=== PATIENT | male | born 1975 | race African-American/Black ===

== ENCOUNTER 2018-06-28 10:51 | Emergency (ER) | payer OTHER, SELFPAY ==
--- NOTE | 2018-06-28 11:17 | RAD REPORT ---
EXAM DESCRIPTION: CT - Ct Stroke Brain Wo Cont - 06/28/2018 11:09 am CLINICAL HISTORY: Left arm left leg numbness CLINICAL HISTORY: None. TECHNIQUE: Axial 5 millimeter thick images of the head were obtained without IV contrast. All CT scans are performed using dose optimization technique as appropriate and may include automated exposure control or mA/KV adjustment according to patient size. FINDINGS: No intracranial hemorrhage, mass, or cerebral edema. No acute infarction identifiable. No extra-axial fluid collections. Calixto matter-white matter differentiation is preserved. Ventricles are normal size. Physiologic calcifications are present. Visualized portions of the mastoid air cells, paranasal sinuses, and orbits are unremarkable. Significant asymmetry is created by head tilt. Findings telephoned to [facility] in the emergency department 11:13 a.m.. IMPRESSION: No CT evidence of acute intracranial process. MR imaging could be performed if the patient has continued symptoms concerning for nonhemorrhagic CVA .
[2018-06-28 11:50] LABS: Potassium 4.4 mmol/L (3.5-5.1)
--- NOTE | 2018-06-28 11:53 | RAD REPORT ---
EXAM DESCRIPTION: RAD - Chest Single View - 06/28/2018 11:48 am CLINICAL HISTORY: left sided weak/numd Chest pain. COMPARISON: No comparisons FINDINGS: Portable technique limits examination quality. Mild reticular opacities are seen in the lung bases, greater on the left, suspicious for atypical inf ection. The heart is normal in size. No displaced fractures.
[2018-06-28] MEDS ORDERED: ASPIRIN 81 MG CHEWABLE TABLET ONE (11:59)
[2018-06-28] MEDS ORDERED: FOLIC ACID 1 MG TABLET ONE (11:59)
[2018-06-28 12:00] LABS: Absolute Lymphocytes (CBC) 1.2 K/uL (0.7-4.9); Absolute Monocytes 0.3 K/uL (0.1-1.3); Absolute Neutrophil 3.2 K/uL (1.8-8.0); Basophils % 0.3 % (0-1.3); Eosinophils % 1.1 % (0-4.4); Hematocrit 47.9 % (39.6-49.0); Lymphocytes % 25.2 % (15.3-44.8); MPV 8.3 fL (7.6-11.3); Monocytes % 6.5 % (3.3-12.3)
--- NOTE | 2018-06-28 13:17 | RAD REPORT ---
EXAM DESCRIPTION: MRI - Brain Wo Cont - 06/28/2018 1:09 pm CLINICAL HISTORY: WEAKNESS Headache, CVA COMPARISON: Ct Stroke Brain Wo Cont dated 06/28/2018 TECHNIQUE: Multi-sequence, multiplanar MR imaging of the brain was performed without contrast. FINDINGS: No intracranial hemorrhage, hydrocephalus or extra-axial fluid collections. No edema or sh ift of midline structures. No findings to suspect brain mass. DWI is negative for acute CVA. Midline structures are normally formed. Mastoid air cells and paranasal sinuses are clear. IMPRESSION: No acute or concerning intracranial abnormalities.
--- NOTE | 2018-06-28 13:43 | ER ---
Nurse's Notes [facility] Name: Jas Don Age: 43 yrs Sex: Male : 1975 Arrival Date: 06/28/2018 Time: 10:54 Bed 2 Private MD: Diagnosis: Paresthesia of skin;Weakness Presentation: 06/28 10:54 Presenting complaint: EMS states: LEFT ARM/LEG NUMBNESS x5 MINUTES WITH GAIT bp DISTURBANCE. Transition of care: patient was not received from another setting of care. Onset of symptoms is unknown. Risk Assessment: Do you want to hurt yourself or someone else? Patient reports no desire to harm self or others. Initial Sepsis Screen: Does the patient meet any 2 criteria? No. Patient's initial sepsis screen is negative. Does the patient have a suspected source of infection? No. Patient's initial sepsis screen is negative. Care prior to arrival: None. 10:54 Method Of Arrival: EMS: [facility] bp 10:54 Acuity: FRANCISCO 2 bp Triage Assessment: 10:56 General: Appears in no apparent distress. comfortable, Behavior is calm, cooperative, bp appropriate for age. Pain: Denies pain. EENT: No deficits noted. Neuro: Level of Consciousness is awake, alert, obeys commands, Oriented to person, place, time, situation, Appropriate for age Grocery Specialist are equal bilaterally Moves all extremities. Full function Gait is steady, Speech is normal, Facial symmetry appears normal, Pupils are PERRLA, Intact. Cardiovascular: Rhythm is sinus rhythm. Respiratory: Airway is patent Respiratory effort is even, unlabored, Respiratory pattern is regular, symmetrical. GI: No signs and/or symptoms were reported involving the gastrointestinal system. : No signs and/or symptoms were reported regarding the genitourinary system. Derm: No deficits noted. Musculoskeletal: Circulation, motion, and sensation intact. Range of motion: intact in all extremities. Historical: - Allergies: 10:56 No Known Allergies; bp - Home Meds: 10:56 None [Active]; bp - PMHx: 10:56 None; bp - Immunization history:: Adult Immunizations up to date. - Social history:: Smoking status: Patient/guardian denies using tobacco. - Ebola Screening: : Patient negative for fever greater than or equal to 101.5 degrees Fahrenheit, and additional compatible Ebola Virus Disease symptoms Patient denies exposure to infectious person Patient denies travel to an Ebola-affected area in the 21 days before illness onset No symptoms or risks identified at this time. Screenin:00 Abuse screen: Denies threats or abuse. Denies injuries from another. Nutritional bp screening: No deficits noted. Tuberculosis screening: No symptoms or risk factors identified. Fall Risk None identified. 11:17 The patient has not been NPO before screening. The patient is alert, able to follow bp commands. The patient does not exhibit slurred or garbled speech The patient is not exhibiting difficulty speaking. The patient does not exhibit difficulty understanding words. The patient is able to swallow own secretions with no drooling or need for suction. Patient tolerated one teaspoon of water. No drooling, immediate coughing, gurgling, or clearing of the throat was noted. The patient tolerated 90mL of water. No drooling, immediate coughing, gurgling, or clearing of the throat was noted. The patient passed the bedside swallow screening. Oral medications may be given as ordered. Contact Physician for further diet orders. Assessment: 11:00 General: SEE TRIAGE NOTE. bp 12:30 Reassessment: PT TO MRI WITH [employer] CONSULTANT. bp 14:03 Reassessment: PT D/C HOME AMBULATORY WITH FAMILY, NEURO INTACT. DX WITH TRANSIENT bp PARESTHESIA AND WEAKNESS. Vital Signs: 10:56 BP 145 / 98; Pulse 81; Resp 16; Temp 98; Pulse Ox 98% ; Weight 83.91 kg; Height 5 ft. 8 bp in. (172.72 cm); 14:00 BP 155 / 101; Pulse 69; Resp 16; Pulse Ox 100% ; bp 10:56 Body Mass Index 28.13 (83.91 kg, 172.72 cm) bp NIH Stroke Scale Scores: 11:25 NIHSS Score: 0 kdr ED Course: 10:54 Patient arrived in ED. bp 10:55 Regis Arroyo MD is Attending Physician. kdr 10:55 Triage completed. bp 10:56 Arm band placed on. bp 11:00 Patient has correct armband on for positive identification. Bed in low position. Call bp light in reach. Side rails up X2. 11:08 Inserted saline lock: 20 gauge in right antecubital area, using aseptic technique. ss Blood collected. Patient maintains SpO2 saturation greater than 95% on room air. 11:08 EKG done, by technical director. reviewed by Regis Arroyo MD. at1 11:09 CT Stroke Brain w/o Contrast In Process Unspecified. EDMS 11:16 Umair Jones, RN is Primary Nurse. bp 11:47 X-ray completed. Portable x-ray completed in exam room. Patient tolerated procedure jb2 well. 11:49 Stroke CXR 1 View In Process Unspecified. EDMS 12:50 Patient moved to MRI via wheelchair. em2 13:10 Brain Wo Cont In Process Unspecified. EDMS 14:04 No provider procedures requiring assistance completed. IV discontinued, intact, bp bleeding controlled, No redness/swelling at site. Pressure dressing applied. Administered Medications: 11:50 Drug: Aspirin Chewable Tablet 324 mg Route: PO; bp 13:40 Follow up: Response: No adverse reaction bp 11:50 Drug: foLIC Acid 1 mg Route: PO; bp 13:39 Follow up: Response: No adverse reaction bp Point of Care Testing: Blood Glucose: 11:08 Blood Glucose: 111 mg/dL; ss Ranges: Outcome: 13:42 Discharge ordered by . kdr 14:04 Discharged to home ambulatory, with family. bp 14:04 Condition: stable 14:04 Discharge instructions given to patient, Instructed on discharge instructions, follow up and referral plans. Demonstrated understanding of instructions, follow-up care. 14:07 Patient left the ED. bp NIH Stroke Scale - NIH Stroke Score Date: 06/28/2018 Time: 11:25 Total Score = 0 1a. Level of Consciousness (LOC) - 0(Alert) 1b. Level of Consciousness (LOC) (Year \T\ Age) - 0(Both) 1c. LOC Commands (Open \T\ Closes Eyes/[employer] Flat[employer] Truck Driver) - 0(Both) 2. Best Gaze (Lateral Gaze Paresis) - 0(Normal) 3. Visual Field Loss - 0(No visual loss) 4. Facial Palsy - 0(Normal) 5a. Left Arm: Motor (10-second hold) - 0(No drift) 5b. Right Arm: Motor (10-second hold) - 0(No drift) 6a. Left Leg: Motor (5-second hold - always test supine) - 0(No drift) 6b. Right Leg: Motor (5-second hold - always test supine) - 0(No drift) 7. Limb Ataxia (finger/nose \T\ heel/awad - test with eyes open) - 0(Absent) 8. Sensory Loss (pinprick arms/legs/face) - 0(Normal) 9. Best Language: Aphasia (description/naming/reading) - 0(No aphasia) 10. Dysarthria (speech clarity - read or repeat words) - 0(Normal) 11. Extinction and Inattention (visual/tactile/auditory/spatial/personal) - 0(No abnormality) Initials: kdr Signatures: Dispatcher [employer] EDRegis Kearns MD MD kdr Buechter, Jesse jb2 Destiney Suarez, MARCOS RN ss Jeff Lauren em2 Arielle Piedra, template inspector EKG Tat1 Umair Jones, RN RN bp
--- NOTE | 2018-06-28 13:43 | EDPHYS ---
Physician Documentation [facility] Name: Jas Don Age: 43 yrs Sex: Male : 1975 Arrival Date: 06/28/2018 Time: 10:54 Bed 2 Private MD: ED Physician Regis Arroyo HPI: 06/28 11:25 This 43 yrs old Black Male presents to ER via EMS with complaints of Numbness. kdr 11:25 The patient's problem is reported as paresthesias, in left upper extremity, in left kdr lower extremity, weakness, in the left upper extremity, in the left lower extremity. Onset: The symptoms/episode began/occurred suddenly, just prior to arrival. Duration: This was a single incident, The episode is continuous, Improved within a few minutes. By the time of arrival, nearly completely resolved. Stroke scale 0. Historical: - Allergies: 10:56 No Known Allergies; bp - Home Meds: 10:56 None [Active]; bp - PMHx: 10:56 None; bp - Immunization history:: Adult Immunizations up to date. - Social history:: Smoking status: Patient/guardian denies using tobacco. - Ebola Screening: : Patient negative for fever greater than or equal to 101.5 degrees Fahrenheit, and additional compatible Ebola Virus Disease symptoms Patient denies exposure to infectious person Patient denies travel to an Ebola-affected area in the 21 days before illness onset No symptoms or risks identified at this time. ROS: 11:29 Constitutional: Negative for fever, chills, and weight loss, Eyes: Negative for injury, kdr pain, redness, and discharge, ENT: Negative for injury, pain, and discharge, Neck: Negative for injury, pain, and swelling, Cardiovascular: Negative for chest pain, palpitations, and edema, Respiratory: Negative for shortness of breath, cough, wheezing, and pleuritic chest pain, Abdomen/GI: Negative for abdominal pain, nausea, vomiting, diarrhea, and constipation, Back: Negative for injury and pain, : Negative for injury, bleeding, discharge, and swelling, MS/Extremity: Negative for injury and deformity, Skin: Negative for injury, rash, and discoloration, Psych: Negative for depression, anxiety, suicide ideation, homicidal ideation, and hallucinations, Allergy/Immunology: Negative for hives, rash, and allergies, Endocrine: Negative for neck swelling, polydipsia, polyuria, polyphagia, and marked weight changes, Hematologic/Lymphatic: Negative for swollen nodes, abnormal bleeding, and unusual bruising. 11:29 Neuro: Positive for gait disturbance, numbness, tingling, weakness, Negative for altered mental status, dizziness, headache, hearing loss, loss of consciousness, seizure activity, speech changes, syncope, near syncope, tinnitus, tremor, visual changes. Exam: 11:25 Radiologist reports: Negative per Dr. Spears [facility] 11:25 Constitutional: This is a well developed, well nourished patient who is awake, alert, and in no acute distress. Head/Face: Normocephalic, atraumatic. Eyes: Pupils equal round and reactive to light, extra-ocular motions intact. Lids and lashes normal. Conjunctiva and sclera are non-icteric and not injected. Cornea within normal limits. Periorbital areas with no swelling, redness, or edema. Neck: Trachea midline, no thyromegaly or masses palpated, and no cervical lymphadenopathy. Supple, full range of motion without nuchal rigidity, or vertebral point tenderness. No Meningismus. Chest/axilla: Normal chest wall appearance and motion. Nontender with no deformity. No lesions are appreciated. Cardiovascular: Regular rate and rhythm with a normal S1 and S2. No gallops, murmurs, or rubs. Normal PMI, no JVD. No pulse deficits. Respiratory: Lungs have equal breath sounds bilaterally, clear to auscultation and percussion. No rales, rhonchi or wheezes noted. No increased work of breathing, no retractions or nasal flaring. Abdomen/GI: Soft, non-tender, with normal bowel sounds. No distension or tympany. No guarding or rebound. No evidence of tenderness throughout. Back: No spinal tenderness. No costovertebral tenderness. Full range of motion. Skin: Warm, dry with normal turgor. Normal color with no rashes, no lesions, and no evidence of cellulitis. MS/ Extremity: Pulses equal, no cyanosis. Neurovascular intact. Full, normal range of motion. Neuro: Awake and alert, GCS 15, oriented to person, place, time, and situation. Cranial nerves II-XII grossly intact. Motor strength 5/5 in all extremities. Sensory grossly intact. Cerebellar exam normal. Normal gait. Psych: Awake, alert, with orientation to person, place and time. Behavior, mood, and affect are within normal limits. Vital Signs: 10:56 BP 145 / 98; Pulse 81; Resp 16; Temp 98; Pulse Ox 98% ; Weight 83.91 kg; Height 5 ft. 8 bp in. (172.72 cm); 14:00 BP 155 / 101; Pulse 69; Resp 16; Pulse Ox 100% ; bp 10:56 Body Mass Index 28.13 (83.91 kg, 172.72 cm) bp NIH Stroke Scale Scores: 11:25 NIHSS Score: 0 kdr MDM: 11:25 Data reviewed: vital signs, nurses notes, lab test result(s), EKG, radiologic studies. kdr Counseling: I had a detailed discussion with the patient and/or guardian regarding: the historical points, exam findings, and any diagnostic results supporting the discharge/admit diagnosis, lab results, radiology results. 13:42 Patient medically screened. kdr 06/28 11:03 Order name: Basic Metabolic Panel; Complete Time: 13: kdr 06/28 11:03 Order name: CBC with Diff; Complete Time: 13: kdr 06/28 11:03 Order name: Protime (+inr); Complete Time: 13: kdr 06/28 11:03 Order name: Ptt, Activated; Complete Time: 13: kdr 06/28 11:03 Order name: CT Stroke Brain w/o Contrast; Complete Time: 13: kdr 06/28 11:03 Order name: Stroke CXR 1 View; Complete Time: 13: kdr 06/28 11:03 Order name: EKG; Complete Time: 11:04 kdr 06/28 11:03 Order name: Accucheck; Complete Time: 11: kdr 06/28 11:03 Order name: Cardiac monitoring; Complete Time: 11: kdr 06/28 11:03 Order name: EKG - Nurse/Tech; Complete Time: 11: kdr 06/28 12:34 Order name: Brain Wo Cont; Complete Time: 13:39 EDMS 06/28 11:03 Order name: IV Saline Lock; Complete Time: 11: kdr 06/28 11:03 Order name: Labs collected and sent; Complete Time: 11: kdr 06/28 11:03 Order name: NPO; Complete Time: 11: kdr 06/28 11:03 Order name: O2 Per Protocol; Complete Time: 11: kdr 06/28 11:03 Order name: O2 Sat Monitoring; Complete Time: 11: kdr 06/28 11:03 Order name: Stroke Swallow Screen; Complete Time: 11: kdr Administered Medications: 11:50 Drug: Aspirin Chewable Tablet 324 mg Route: PO; bp 13:40 Follow up: Response: No adverse reaction bp 11:50 Drug: foLIC Acid 1 mg Route: PO; bp 13:39 Follow up: Response: No adverse reaction bp Point of Care Testing: Blood Glucose: 11: Blood Glucose: 111 mg/dL; ss Ranges: Critical Glucose Levels:Adult <50 mg/dl or >400 mg/dl <40 mg/dl or >180 mg/dl Disposition: 06/28/18 13:42 Discharged to Home. Impression: Paresthesia of skin, Weakness. - Condition is Stable. - Discharge Instructions: Weakness, [id number], Paresthesia, [id number]. - Medication Reconciliation Form, Thank You Letter, Work release form form. - Follow up: Private Physician; When: 2 - 3 days; Reason: If symptoms return, Further diagnostic work-up, Recheck today's complaints, Continuance of care, Re-evaluation by your physician. - Problem is new. - Symptoms are resolved. NIH Stroke Scale - NIH Stroke Score Date: 06/28/2018 Time: 11:25 Total Score = 0 1a. Level of Consciousness (LOC) - 0(Alert) 1b. Level of Consciousness (LOC) (Year \T\ Age) - 0(Both) 1c. LOC Commands (Open \T\ Closes Eyes/Forensic Computer Examiner) - 0(Both) 2. Best Gaze (Lateral Gaze Paresis) - 0(Normal) 3. Visual Field Loss - 0(No visual loss) 4. Facial Palsy - 0(Normal) 5a. Left Arm: Motor (10-second hold) - 0(No drift) 5b. Right Arm: Motor (10-second hold) - 0(No drift) 6a. Left Leg: Motor (5-second hold - always test supine) - 0(No drift) 6b. Right Leg: Motor (5-second hold - always test supine) - 0(No drift) 7. Limb Ataxia (finger/nose \T\ heel/awad - test with eyes open) - 0(Absent) 8. Sensory Loss (pinprick arms/legs/face) - 0(Normal) 9. Best Language: Aphasia (description/naming/reading) - 0(No aphasia) 10. Dysarthria (speech clarity - read or repeat words) - 0(Normal) 11. Extinction and Inattention (visual/tactile/auditory/spatial/personal) - 0(No abnormality) Initials: kdr Signatures: Dispatcher [employer] [facility] Regis Arroyo MD MD kdr Umair Jones, RN RN bp Corrections: (The following items were deleted from the chart) 12:34 11:13 MR STROKE PROTOCOL+MRI.RAD.BRZ ordered. [facility] 14:07 13:42 06/28/2018 13:42 Discharged to Home. Impression: Paresthesia of skin; bp Weakness. Condition is Stable. Forms are Medication Reconciliation Form, Thank You Letter, Antibiotic Education, Prescription Opioid Use. Follow up: Private Physician; When: 2 - 3 days; Reason: If symptoms return, Further diagnostic work-up, Recheck today's complaints, Continuance of care, Re-evaluation by your physician. Problem is new. Symptoms are resolved. kdr
--- NOTE | 2018-06-28 17:07 | EKG ---
Test Date: 2018-06-28 Test Time: 11:02:16 Shipper And Receiving: BELEM MEASUREMENT RESULTS: Intervals: Rate: 66 ME: 164 QRSD: 86 QT: 368 QTc: 385 [place]: P: 57 ME: 164 QRS: 29 T: 32 INTERPRETIVE STATEMENTS: Normal sinus rhythm Normal ECG No previous ECG available for comparison Electronically Signed On 06-28-18 17:06:40 CDT by Dean Camilo
== END 2018-06-28 14:07 | disposition home or self-care (01) ==
LOC: ER 10:51
DX: R20.0 Anesthesia of skin (principal); R53.1 Weakness
CPT/HCPCS: 36415; 70450; 70551; 71045; 80048; 82962; 85025; 85610; 85730; 93005; 99285